=== PATIENT | male | born 1970 ===

== ENCOUNTER 2017-06-30 09:03 | Emergency (ER) | payer BC ==
[2017-06-30 09:13] VITALS: BP 130/80; PULSE 60; RESP 17; TEMP 97.3; O2SAT 99
--- NOTE | 2017-06-30 09:30 | C.PDOC ---
History Of Present Illness Patient is a 47 y/o M presenting with lump to R upper eye lid x 1 day. Patient denies change in vision or fever. Denies contact lens use. Denies any other complaints. Time Seen by Provider: 06/30/17 09:24 Chief Complaint (Nursing): Eye Problem Past Medical History Vital Signs: Last Vital Signs Temp 97.3 F L 06/30/17 09:11 Pulse 60 06/30/17 09:11 Resp 17 06/30/17 09:11 BP 130/80 06/30/17 09:11 Pulse Ox 99 06/30/17 09:32 Family History: States: No Known Family Hx - Social History Hx Alcohol Use: No Hx Substance Use: No - Immunization History Hx Tetanus Toxoid Vaccination: No Hx Influenza Vaccination: No Hx Pneumococcal Vaccination: No Review Of Systems Constitutional: Negative for: Fever, Chills Eyes: Positive for: Eyelid Inflammation. Negative for: Pain, Vision Change, Redness ENT: Negative for: Ear Pain, Nose Pain, Throat Pain, Throat Swelling Cardiovascular: Negative for: Chest Pain, Palpitations Respiratory: Negative for: Cough, Shortness of Breath, SOB with Excertion, Wheezing Gastrointestinal: Negative for: Nausea, Vomiting, Abdominal Pain, Diarrhea, Constipation Skin: Negative for: Rash Neurological: Negative for: Weakness, Numbness Physical Exam - Physical Exam Appears: Well, Non-toxic, No Acute Distress Skin: Normal Color, Warm, Dry Head: Atraumatic, Normacephalic Eye(s): bilateral: PERRL, EOMI, left: Other (stye to R eye, normal conjunctiva) Neck: Supple Extremity: Normal ROM Neurological/Psych: Oriented x3, Normal Speech, Normal Cognition Gait: Steady ED Course And Treatment O2 Sat by Pulse Oximetry: 99 Medical Decision Making Medical Decision Making: Patient instructed to apply hot packs and follow-up with PMD Disposition - Disposition Disposition: HOME/ ROUTINE Disposition Time: 09:29 Condition: GOOD Additional Instructions: Apply hot pack to R eye when closed. Return to ED if condition worsens. Follow -up with PMD within 2 days. Instructions: Inga ([employer]) Forms: [employer] ([place]ian) - Clinical Impression Clinical Impression: Inga
== END 2017-06-30 09:50 | disposition home or self-care (01) ==
LOC: C.ER 09:03
DX: H00.021 Hordeolum internum right upper eyelid (principal)